=== PATIENT | male | born 1985 | race Caucasian/White ===

== ENCOUNTER 2020-10-29 13:17 | Emergency (ER) | payer MEDICAID, OTHER ==
[~2020-10-29] VITALS: Ht 172.7 cm; Wt 54.4 kg
[~2020-10-29 13:17] MED LIST: INHALER
[2020-10-29] MEDS ORDERED: MAG HYDROX/AL HYDROX/SIMETH 30 ML LIQUID UDC ONE (13:38)
[2020-10-29] MEDS ORDERED: KETOROLAC TROMETHAMINE 15 MG INJ ONE (13:38)
[2020-10-29] MEDS: IV NORMAL SALINE 1000 ML BAG IV ONE (13:45)
[2020-10-29] MEDS: MAG HYDROX/AL HYDROX/SIMETH 30 ML LIQUID UDC PO ONE (13:46)
[2020-10-29] MEDS: KETOROLAC TROMETHAMINE 15 MG INJ IVP ONE (13:46)
--- NOTE | 2020-10-29 13:46 | NUR ---
PT IS IN ROOM #1B. DR JONES EVALUATED THE PT.
[2020-10-29 13:50] LABS: *BILIRUBIN,URIN NEGATIVE (NEGATIVE); *BLOOD, URINE NEGATIVE (NEGATIVE); *CLARITY,URINE CLEAR (CLEAR); *COLOR,URINE YELLOW (YELLOW); *KETONES,URINE NEGATIVE (NEGATIVE); *UROBILINOGEN,URINE 0.2 E.U./dl (NORMAL); LEUKOCYTE ESTERASE ,URINE NEGATIVE (NEGATIVE); NITRITE, URINE NEGATIVE (NEGATIVE); PH,URINE 6.5 (5.0-8.0); UGLUCOSE NEGATIVE (NEGATIVE)
[2020-10-29 13:54] LABS: EOSINOPHILS # (AUTO) 0.1 K/uL (0.0-0.7); LYMPHOCYTES # (AUTO) 2.1 K/uL (20.0-40.0); MONOCYTES # (AUTO) 0.5 K/uL (2.0-10.0); MONOCYTES % (AUTO) 9.8 % (0.0-11.0); RED BLOOD CELL COUNT(AUTO) 5.42 MIL/uL (4.06-5.63)
[2020-10-29 13:59] LABS: *AMPHETAMINE, URINE NEGATIVE (NEGATIVE); *CANNABINOID, URINE NEGATIVE (NEGATIVE); *COCCAINE, URINE NEGATIVE (NEGATIVE); *OPIATE, URINE NEGATIVE (NEGATIVE); *PHENCYCLIDINE SCREEN,URINE NEGATIVE (NEGATIVE)
[2020-10-29 14:06] LABS: BASOPHILS % (AUTO) 0.6 % (0.0-2.0); EOSINOPHILS % (AUTO) 1.8 % (0.0-7.0); HEMATOCRIT 47.3 % (36.7-47.1); HEMOGLOBIN 16.2 g/dL (12.5-16.3); LYMPHOCYTES % (AUTO) 40.4 % (20.5-51.5); MEAN CORPUSCULAR HEMOGLOBIN 29.8 uug (23.8-33.4); MEAN CORPUSCULAR HGB CONC 34 g/dL (32.5-36.3); MEAN CORPUSCULAR VOLUME 87.3 fL (73.0-96.2); NEUTROPHILS # (AUTO) 2.4 K/uL (1.8-8.9); NEUTROPHILS % (AUTO) 47.4 % (38.5-71.5); WHITE BLOOD COUNT (AUTO) 5.2 K/uL (3.6-10.2)
[2020-10-29 14:10] LABS: BILIRUBIN,DIRECT 0.2 mg/dL (0.0-0.2); BILIRUBIN,TOTAL 1.2 mg/dL (0.2-1.0); CREATININE 0.9 mg/dL (0.6-1.3); POTASSIUM 3.9 mmol/L (3.5-5.1); TOTAL PROTEIN, SERUM 7.2 g/dL (6.4-8.2)
[2020-10-29 14:12] LABS: PLATELET COUNT (AUTO) 140 K/uL (152-348)
[2020-10-29] MEDS ORDERED: IBUP-1955 PO (14:43)
--- NOTE | 2020-10-29 15:34 | NUR ---
PT WAS D/C'd TO HOME. D/C INSTRUCTIONS GIVEN TO THE PT BY DR JONES.
[2020-10-29 15:36] VITALS: BP 122/68
== END 2020-10-29 15:36 | disposition home or self-care (01) ==
LOC: ER 13:21
DX: R10.33 Periumbilical pain (principal); D69.6 Thrombocytopenia, unspecified; R17 Unspecified jaundice; Z88.0 Allergy status to penicillin; Z87.891 Personal history of nicotine dependence; J45.909 Unspecified asthma, uncomplicated
CPT/HCPCS: 36415; 80048; 80076; 80307; 81003; 83690; 85025; 96361; 96374; 99284; J1885; A4663; J7030